=== PATIENT | male | born 1980 | race American Indian/Alaskan Native ===

== ENCOUNTER 2017-10-31 18:09 | Emergency (ER) | payer MEDICAID ==
[2017-10-31 18:32] VITALS: RESP 18
--- NOTE | 2017-10-31 19:16 | C.PDOC ---
History Of Present Illness 37 y/o male presents to the ER for evaluation of a rash to his right elbow for 4 -5 days. States he was recently working around poison suzan, and has had poison suzan in the past. Reports applying hydrocortisone cream with some improvement. No fever, chills, or other complaints. Time Seen by Provider: 10/31/17 18:52 Chief Complaint (Nursing): Abnormal Skin Integrity History Per: Patient History/Exam Limitations: no limitations Onset/Duration Of Symptoms: Days Current Symptoms Are (Timing): Still Present Past Medical History Reviewed: Historical Data, Nursing Documentation, Vital Signs Vital Signs: Last Vital Signs Temp 98.1 F 10/31/17 20:49 Pulse 65 10/31/17 20:49 Resp 18 10/31/17 20:49 BP 114/75 10/31/17 20:49 Pulse Ox 99 10/31/17 20:49 - Medical History PMH: No Chronic Diseases Surgical History: Back Surgery (LYPOMA REMOVED) Family History: States: No Known Family Hx - Social History Hx Tobacco Use: No Hx Alcohol Use: No Hx Substance Use: No Review Of Systems Except As Marked, All Systems Reviewed And Found Negative. Constitutional: Negative for: Fever, Chills Skin: Positive for: Rash Physical Exam - Physical Exam Appears: Non-toxic, No Acute Distress Skin: Warm, Rash ((+) scattered pinpoint papules to the dorsal forearms. ) Head: Atraumatic, Normacephalic Eye(s): bilateral: Normal Inspection Nose: Normal Oral Mucosa: Moist Neck: Normal ROM, Supple Chest: Symmetrical Respiratory: No Accessory Muscle Use Extremity: Bilateral: Atraumatic, Normal ROM Pulses: Left Radial: Normal, Right Radial: Normal Neurological/Psych: Oriented x3, Normal Speech ED Course And Treatment O2 Sat by Pulse Oximetry: 96 (RA) Pulse Ox Interpretation: Normal Medical Decision Making Medical Decision Making: Plan: Patient counseled regarding diagnosis and treatment plan. Patient is stable for discharge home. There is agreement to discharge plan. Disposition Counseled Patient/Family Regarding: Diagnosis, Need For Followup, Rx Given - Disposition Referrals: [facility] [Outside] Disposition: HOME/ ROUTINE Disposition Time: 19:44 Condition: GOOD Additional Instructions: Follow up with the medical doctor/clinic within 1-2 days without fail. Return if worsened. 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 - Scribe Statement The provider has reviewed the documentation as recorded by the Scribe (Angela Coon) All medical record entries made by the Scribe were at my direction and personally dictated by me. I have reviewed the chart and agree that the record accurately reflects my personal performance of the history, physical exam, medical decision making, and the department course for this patient. I have also personally directed, reviewed, and agree with the discharge instructions and disposition.
[2017-10-31 20:50] VITALS: BP 114/75; PULSE 65; TEMP 98.1
[2017-10-31 22:17] VITALS: O2SAT 96
== END 2017-10-31 20:50 | disposition home or self-care (01) ==
LOC: C.ER 18:09
DX: L23.7 Allergic contact dermatitis due to plants, except food (principal)